=== PATIENT | female | born 1965 | race Caucasian/White ===

== ENCOUNTER 2021-05-08 09:19 | Outpatient (CLI) | payer OTHER, SELFPAY ==
--- NOTE | ~2021-05-08 | US_ITS ---
US breast LT limited 05/08/2021 10:50 Indication: History of recent trauma to the left breast with bruising and swelling Procedure: High-resolution ultrasound of the left breast in the area of palpable concern Comparison: Comparison to mammogram dated 02/02/2008 Findings: Patient refused mammography due to pain. In the area of palpable concern at 9-11:00 in the left breast, 10 cm from the nipple there are multiple complex fluid collections which are largely cys tic, likely hematomas/seromas. Impression: 1: Multiple complicated fluid collections in the area of palpable concern in the left breast at 9-11: 00, 10 cm from the nipple, most likely posttraumatic hematomas/seromas. Recommend follow-up ultrasoun d with mammography in 2-3 months to assess for resolution. BI-RADS CATEGORY 3-PROBABLY BENIGN FINDING Reviewed, dictated and finalized at location A. Impression: 1: Multiple complicated fluid collections in the area of palpable concern in th e left breast at 9-11:00, 10 cm from the nipple, most likely posttraumatic rafael michael/seromas. Recommend follow-up ultrasound with mammography in 2-3 months to assess for resolution. BI-RADS CATEGORY 3-PROBABLY BENIGN FINDING
== END 2021-05-08 09:20 | disposition home or self-care (01) ==
PROVIDERS: Visit Provider Physician Assistant
DX: N63.22 Unspecified lump in the left breast, upper inner quadrant (principal)
CPT/HCPCS: 76642